=== PATIENT | male | born 1995 | race Caucasian/White ===

== ENCOUNTER 2018-01-13 14:42 | Emergency (ER) | payer OTHER ==
[~2018-01-13] VITALS: Ht 175.3 cm; Wt 70.7 kg
[2018-01-13 14:45] VITALS: TEMP 36.8; Ht 175.3 cm; Wt 70.7 kg
[2018-01-13] MEDS ORDERED: KETO10TA PO (15:30)
[2018-01-13 15:45] VITALS: BP 122/78; PULSE 71; O2SAT 98
--- NOTE | 2018-01-14 06:53 | EMERGENCY ROOM VISIT NOTE ---
ED Visit Note First contact with patient: 14:51 CHIEF COMPLAINT: Toothache. HISTORY OF PRESENT ILLNESS: Mr. Nader Sullivan is a 22-year-old male who ambulates into the left sided mandibular dental pain. He reports a progressive dental pain for 20 hours over the left mandible. The pain is now steady and severe. He has been using OTC dental analgesia and ice but has had no relief of his discomfort. Currently he is complaining of throbbing pain in the area of tooth #19. He rates her discomfort 7/10. His pain is nonradiating. He rates his discomfort 7/ 10. His pain worsens with chewing and exposure to hot and cold temperatures. He has not identified any alleviating factors related to his discomfort. He does report the last time he visited his dentist was many years ago and he is status post wisdom teeth extraction. He denies any recent trauma, fevers, chills, facial swelling, sore throats, painful talking, drooling, difficulty swallowing, voice changes, drooling. REVIEW OF SYSTEMS: As noted above in History of Present Illness. PMH: Patient denies. CURRENT MEDICATION: Patient denies.. ALLERGIES TO MEDICATION: Patient denies. SOCIAL HISTORY: Patient is currently in school; he feels safe in his home environment; he denies tobacco use. PHYSICAL EXAM: Vital Signs: Date Time Temp Pulse Resp B/P (MAP) Pulse Ox O2 Delivery O2 Flow Rate FiO2 01/13/18 15:45 71 16 122/78 98 01/13/18 14:45 36.8 66 16 129/80 97 Room Air General: 22 year-old white male in mild distress due to pain, nontoxic appearing , afebrile and hemodynamically stable. Neurological: Awake, alert and oriented to person, place and time. Answering questions appropriately and following commands. Skin: Warm, dry and pink. No soft tissue lesions, rashes, or trauma noted. HEENT: Atraumatic and normocephalic. Oral cavity is moist and pink. Airway is patent. Uvula is midline and no abscesses are seen. Speech is normal. No obvious signs of dental decay. Tooth #19 does have a filling in place. Appears stable within the tooth. The surrounding gingiva is not erythematous or edematous. There is no local palpable abscess. The tooth is mildly tender to palpation. No cervical or submandibular lymphadenopathy. ED COURSE: Patient is assessed as noted above. Patient's medication list was reviewed. Patient is educated about his findings and instructed on his treatment plan; he verbalizes understanding and agreement with this plan. CLINIC IMPRESSION: Dental pain. DISPOSITION: Patient discharged home in stable condition; prior to departure he was reassessed and subjectively reported she was feeling the same. PLAN: Comfort measures were discussed with the patient including alternating Toradol and acetaminophen every 3 hours, the use of mechanical diet and the avoidance of hot and cold foodstuffs. Patient was encouraged to followup with personal dentist for definitive care and treatment. Patient was encouraged to return the ED for worsening/uncontrolled pain, facial swelling, fevers or any new/concerning symptoms.
== END 2018-01-13 15:45 | disposition home or self-care (01) ==
LOC: C.EDB 14:44 → C.EDD 15:45
DX: K08.89 Other specified disorders of teeth and supporting structures (principal)

== ENCOUNTER 2018-04-14 23:33 | Emergency (ER) | payer OTHER ==
[~2018-04-14] VITALS: Ht 175.3 cm; Wt 65.2 kg
[2018-04-14 23:33] VITALS: TEMP 37; O2SAT 98; Ht 175.3 cm; Wt 65.2 kg
[2018-04-14] MEDS ORDERED: SODIUM CHLORIDE 0.9% 1000ML 1,000 ML IV ONE ×2 (23:45)
[2018-04-15 00:11] LABS: BASO % 0.5 %; BASO ABS # 0.05 K/uL (0-0.2); EOS % 1.1 %; EOS ABS # 0.12 K/uL (0-0.5); HEMATOCRIT 43.3 % (42-52); HEMOGLOBIN 15.1 g/dL (14.0-18.0); IG# 0.02 K/uL (0.00-0.02); LYMPH % 20.1 %; LYMPH ABS # 2.12 K/uL (1.2-3.4); MEAN CELL VOLUME 85.9 fL (80-100); MEAN CORPUSCULAR HGB CONC 34.9 g/dl (32-36); MEAN PLATELET VOLUME 9.3 fL (7.4-10.4); MONO % 8.7 %; MONO ABS # 0.92 K/uL (0.11-0.59); NEUT % 69.4 %; NEUT ABS # 7.33 K/uL (1.4-6.5); PLATELET COUNT 248 K/uL (130-400); RED CELL DISTRIBUTION WIDTH CV 12.4 % (11.5-14.5); RED CELL DISTRIBUTION WIDTH SD 38.8 fL (36.4-46.3); WHITE BLOOD COUNT 10.56 K/uL (4.8-10.8)
[2018-04-15 00:39] LABS: ALBUMIN 3.6 gm/dl (3.4-5.0); CALCIUM 8.2 mg/dl (8.5-10.1); CREATININE 1.28 mg/dl (0.60-1.40); POTASSIUM 3.7 mmol/L (3.5-5.1); TOTAL PROTEIN 6.7 gm/dl (6.4-8.2)
[2018-04-15 01:56] VITALS: BP 108/60; PULSE 59; O2SAT 98
--- NOTE | 2018-04-15 06:48 | DIAGNOSTIC IMAGING REPORT ---
CHEST ONE VIEW PORTABLE CLINICAL HISTORY: Syncope COMPARISON STUDY: No previous studies for comparison. FINDINGS: The cardiac and mediastinal contours are normal. There is no evidence of focal pulmonary consolidation. There is no evidence of failure. No pleural effusions are visualized.[ IMPRESSION: No active disease in the chest. Electronically signed by: Victorino Dang M.D. 04/15/2018 6:47 AM Dictated Date/Time: 04/15/2018 6:47 AM
--- NOTE | 2018-04-15 23:21 | EMERGENCY ROOM VISIT NOTE ---
History First contact with patient: 23:36 Chief Complaint: DEHYDRATION Stated Complaint: FALL/SYNCOPE Nursing Triage Summary: pt arrives BLS from campus. pt is in the [employer] and runs regularly. tonight pt pushed himself and tried to run 10 miles. pt did not drink fluids today. pt reports he fell once while running and got up and continued to run. pt fell again. passed out. called 911. pt arrives with no complaints of pain. states "i'm sure i'm just dehydrated from not drinking" History of Present Illness The patient is a 22 year old male who presents to the Emergency Room with complaints of possible syncopal episode bringing him to the emergency department today. The patient states that he is in the [employer] and is very active. The patient has not been eating or drinking well today as he has been feeling mildly ill. The patient took a nap this afternoon, woke up, and decided to go for a run. The patient typically does long runs on a regular basis, and this is not atypical for him. The patient states that he began to feel very lightheaded while running. He believes that he slowed down and ultimately fell. The patient returned to his feet and was leaning on a light post when a passerby saw the patient looking ill. They did contact 911, and the patient arrives via ambulance. At this time the patient feels significantly better. He does not have head, neck, chest, or abdominal pain. His lightheadedness has resolved. He does not take medication on a regular basis. He denies drug or alcohol use. He has not had similar symptoms in the past and rates his current discomfort as 0/10. Review of Systems More than 10 systems were reviewed and otherwise negative with the exception of history of present illness. Past Medical/Surgical History No chronic medical disease Family History No pertinent family history Social History Smoking Status: Never Smoker Drug Use: none Housing Status: lives alone Occupation Status: employed Current/Historical Medications No Active Prescriptions or Reported Meds Physical Exam Vital Signs Date Time Temp Pulse Resp B/P (MAP) Pulse Ox O2 Delivery O2 Flow Rate FiO2 04/15/18 01:56 59 19 108/60 98 04/15/18 00:56 50 18 107/66 98 Room Air 04/14/18 23:40 76 133/71 79 124/71 63 123/70 04/14/18 23:39 68 04/14/18 23:33 98 Room Air 04/14/18 23:33 37.0 85 23 133/71 96 Room Air Physical Exam VITALS: Vitals are noted on the nurse's note and reviewed by myself. Vital signs stable. Normal orthostatics. GENERAL: Well-developed, well-nourished, white male, who is in no acute distress and resting comfortably. Patient is cooperative with the examination. HEAD: Normocephalic atraumatic. EARS: External ear normal. External auditory canals clear, tympanic membranes pearly albert without erythema or effusion bilaterally. EYES: Pupils equal round and reactive to light and accommodation. Conjunctivae without injection, sclerae without icterus. Extraocular movements intact. NOSE: Patent, turbinates without inflammation or discharge. MOUTH: Mucous membranes moist. Tonsils are not enlarged. Pharynx without erythema, blood, or exudate. Uvula midline. Airway patent. NECK: Supple without nuchal rigidity. No lymphadenopathy. No thyromegaly. Cervical spine is nontender. HEART: Regular rate and rhythm without murmurs gallops or rubs. LUNGS: Clear to auscultation bilaterally without wheezes, rales or rhonchi. No retractions or accessory muscle use. ABDOMEN: Positive normal bowel sounds x 4. Soft, nontender, without masses or organomegaly. No guarding or rebound tenderness. MUSCULOSKELETAL: No muscle atrophy, erythema, or edema noted. Full range of motion in all extremities. No tenderness to palpation. Normal gait. Strength 5/5 throughout. NEURO: Patient was alert and oriented to person place and time. CN II through XII grossly intact. No focal neurological deficits. Deep tendon reflexes 2+ throughout. SKIN: The skin was without rashes, erythema, edema, or bruising. Capillary refill less than 2 seconds. Medical Decision & Procedures ER Provider Diagnostic Interpretation: CHEST ONE VIEW PORTABLE CLINICAL HISTORY: Syncope COMPARISON STUDY: No previous studies for comparison. FINDINGS: The cardiac and mediastinal contours are normal. There is no evidence of focal pulmonary consolidation. There is no evidence of failure. No pleural effusions are visualized.[ IMPRESSION: No active disease in the chest. Laboratory Results 04/15/18 00:00 Red Blood Count 5.04, Mean Corpuscular Volume 85.9, Mean Corpuscular Hemoglobin 30.0, Mean Corpuscular Hemoglobin Concent 34.9, Mean Platelet Volume 9.3, Neutrophils (%) (Auto) 69.4, Lymphocytes (%) (Auto) 20.1, Monocytes (%) (Auto) 8.7, Eosinophils (%) (Auto) 1.1, Basophils (%) (Auto) 0.5, Neutrophils # (Auto) 7.33, Lymphocytes # (Auto) 2.12, Monocytes # (Auto) 0.92, Eosinophils # (Auto) 0.12, Basophils # (Auto) 0.05 04/15/18 00:00 Test 04/15/18 00:00 04/15/18 00:06 04/15/18 00:44 White Blood Count 10.56 K/uL (4.8-10.8) Red Blood Count 5.04 M/uL (4.7-6.1) Hemoglobin 15.1 g/dL (14.0-18.0) Hematocrit 43.3 % (42-52) Mean Corpuscular Volume 85.9 fL (80-100) Mean Corpuscular Hemoglobin 30.0 pg (25-34) Mean Corpuscular Hemoglobin Concent 34.9 g/dl (32-36) Platelet Count 248 K/uL (130-400) Mean Platelet Volume 9.3 fL (7.4-10.4) Neutrophils (%) (Auto) 69.4 % Lymphocytes (%) (Auto) 20.1 % Monocytes (%) (Auto) 8.7 % Eosinophils (%) (Auto) 1.1 % Basophils (%) (Auto) 0.5 % Neutrophils # (Auto) 7.33 K/uL (1.4-6.5) Lymphocytes # (Auto) 2.12 K/uL (1.2-3.4) Monocytes # (Auto) 0.92 K/uL (0.11-0.59) Eosinophils # (Auto) 0.12 K/uL (0-0.5) Basophils # (Auto) 0.05 K/uL (0-0.2) RDW Standard Deviation 38.8 fL (36.4-46.3) RDW Coefficient of Variation 12.4 % (11.5-14.5) Immature Granulocyte % (Auto) 0.2 % Immature Granulocyte # (Auto) 0.02 K/uL (0.00-0.02) Anion Gap 8.0 mmol/L (3-11) Est Creatinine Clear Calc Drug Dose 82.1 ml/min Estimated GFR () 90.2 Estimated GFR (Non- 77.8 BUN/Creatinine Ratio 18.4 (10-20) Calcium Level 8.2 mg/dl (8.5-10.1) Total Bilirubin 0.6 mg/dl (0.2-1) Aspartate Amino Transf (AST/SGOT) 16 U/L (15-37) Alanine Aminotransferase (ALT/SGPT) 20 U/L (12-78) Alkaline Phosphatase 88 U/L (45-117) Total Creatine Kinase 167 U/L (39-308) Total Protein 6.7 gm/dl (6.4-8.2) Albumin 3.6 gm/dl (3.4-5.0) Globulin 3.1 gm/dl (2.5-4.0) Albumin/Globulin Ratio 1.2 (0.9-2) Lipase 190 U/L (73-393) Bedside Troponin I 0.030 ng/ml (0-0.045) Urine Color YELLOW Urine Appearance CLEAR (CLEAR) Urine pH 6.5 (4.5-7.5) Urine Specific [place] 1.029 (1.000-1.030) Urine Protein NEG (NEG) Urine Glucose (UA) NEG (NEG) Urine Ketones NEG (NEG) Urine Occult Blood NEG (NEG) Urine Nitrite NEG (NEG) Urine Bilirubin NEG (NEG) Urine Urobilinogen NEG (NEG) Urine Leukocyte Esterase NEG (NEG) Medications Administered Medications (Trade) Dose Ordered Sig/Tianna Route Start Time Stop Time Status Last Admin Dose Admin Sodium Chloride 1,000 ml @ 999 mls/hr Q1H1M ONCE IV 04/14/18 23:45 04/15/18 00:45 DC 04/15/18 00:04 999 MLS/HR Sodium Chloride 1,000 ml @ 999 mls/hr Q1H1M ONCE IV 04/14/18 23:45 04/15/18 00:45 DC 04/15/18 00:04 999 MLS/HR ECG Per My Interpretation Change: Sinus bradycardia @[address] elevation or ectopy Otherwise normal ECG No previous ECGs available ED Course Physical exam and history were performed. Nursing notes, EMR, and Medication List were personally reviewed. Patient appears to have suffered a syncopal versus near syncopal episode after exercising. The patient has not had anything to eat or drink today, and despite this was on a 10 mile run. On examination the patient appears well and without significant exam findings. EKG is as above and does show sinus bradycardia, but no other findings per my interpretation. IV access was established and labs were obtained. The patient was hydrated with 2 L normal saline. Chest x-ray was performed. The patient's blood work is as above and was reviewed. He does not have a significantly elevated white blood cell count, gross anemia, bandemia, or significant electrolyte imbalance. Lipase and transaminases are not diagnostic. Troponin and d-dimer are both negative. Creatinine kinase is also normal. Chest x-ray is without acute findings per my and radiology's interpretation. The patient remained in stable condition for several hours here in the emergency department. He was able to tolerate p.o. fluids and did not have any recurrence of his symptoms while here in the ER. Based on history it is likely the patient is suffering from some dehydration, and combined with his 10 mile run caused his episode today. The patient appears in excellent health otherwise and will need to follow with his primary care physician for further care management. He was otherwise invited back to the ER with any new, worsening, or concerning symptoms. The chart was completed utilizing [employer] Speech Voice Recognition Software. Grammatical errors, random word insertions, pronoun errors, and incomplete sentences are an occasional consequence of this system due to software limitations, ambient noise, and hardware issues. Any formal questions or concerns about the content, text, or information contained within the body of this dictation should be directly addressed to the provider for clarification. . Medical Decision Differential diagnosis: Etiologies such as vasovagal event, infection, hypoglycemia, electrolyte abnormalities, cardiac sources, intracerebral event, toxicologic, neurologic, as well as others were entertained. Impression Primary Impression: Near syncope Additional Impression: Dehydration after exertion Departure Information Dispostion Home / Self-Care Condition GOOD Prescriptions No Active Prescriptions or Reported Meds Forms HOME CARE DOCUMENTATION FORM, IMPORTANT VISIT INFORMATION Patient Instructions [facility] Additional Instructions You were seen and evaluated today on an emergency basis only. This is not a substitute for, or an effort to provide, complete comprehensive medical care. It is not possible to recognize and treat all injuries or illnesses in a single emergency department visit. For this reason it is recommended that you followup with your primary care physician with any ongoing or persisting symptoms. Drink plenty fluids and remain well-hydrated. You are welcome to return to the emergency department anytime with new, worsening, or concerning symptoms. Problem Qualifiers
== END 2018-04-15 01:57 | disposition home or self-care (01) ==
LOC: EDUNIT# 23:33 → C.EDB 23:35
DX: R55 Syncope and collapse (principal); E86.0 Dehydration; R00.1 Bradycardia, unspecified